=== PATIENT | male | born 1985 | race Two or more races ===

== ENCOUNTER 2024-08-16 06:29 | Outpatient (CLI) | payer OTHER ==
[2024-08-16 08:03] LABS: BILIRUBIN TOTAL 1.34 mg/dL (0.3-1.2); BILIRUBIN,CONJUGATED 0.23 mg/dL (0.0-0.2); BILIRUBIN,UNCONJUGATED 1.11 mg/dL (0.0-0.6)
== END 2024-08-16 06:30 | disposition home or self-care (01) ==
LOC: LAB 06:29
PROVIDERS: ATTEND Specialist
DX: E80.7 Disorder of bilirubin metabolism, unspecified (principal)

== ENCOUNTER 2024-08-16 07:10 | Outpatient (CLI) | payer OTHER | END 2024-08-16 07:25 | disposition home or self-care (01) | LOC: SONOGRAMA 07:10 | PROVIDERS: ATTEND Specialist | DX: E80.7 Disorder of bilirubin metabolism, unspecified (principal) ==

== ENCOUNTER 2025-06-21 10:48 | Outpatient (CLI) | payer OTHER | END 2025-06-21 10:58 | disposition home or self-care (01) | LOC: MRI 10:48 | PROVIDERS: ATTEND General Practice | DX: M79.672 Pain in left foot (principal); M25.572 Pain in left ankle and joints of left foot; R60.0 Localized edema | CPT/HCPCS: 73721 ==